=== PATIENT | male | born 1955 | race Caucasian/White ===

== ENCOUNTER 2022-10-27 15:45 | Outpatient (CLI) | payer MEDICARE ==
--- NOTE | 2022-11-04 08:12 | MRI Report ---
PROCEDURE: ABDOMEN W/WO INDICATIONS: RENAL CYST CONTRAST: GADAVIST 10.0 ML TECHNIQUE: Coronal ultra fast SE, axial 2D spoiled GE in- and [id number]; axial breath-hold T2 fast SE. Dynam ic axial ultra fast GE during the administration of contrast; post-contrast coronal ultra fast GE or 2D spoiled GE with fat saturation from the hepatic dome to the iliac crests. Optional diffusion weig hted imaging and ADC may be performed. COMPARISON: None available at time of dictation FINDINGS: Image quality: Excellent. Lung bases and heart: Unremarkable. Liver: No solid mass. Moderate signal dropout on the out of phase sequence, most consistent with mode rate hepatic steatosis. Gallbladder and biliary tree: No radiopaque stones or wall thickening. No biliary dilation. Spleen: No splenomegaly. Pancreas: No pancreatic ductal dilation. Adrenals: No adrenal nodule. Kidneys and ureters: On the mid pole of the left kidney, there is a 2.0 cm cystic lesion with a mildl y thickened wall; wall thickness measures 4 mm. Bowel and peritoneum: No bowel distension. No pathologic free fluid. Lymph nodes: No central or retroperitoneal adenopathy. Vessels: No infrarenal aortic aneurysm. Bones: No aggressive osseous abnormality. Other: No significant ventral hernia. 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 These lesions have an intermediate probability of malignancy. If not artery obtained, consider urology consultation. Moderate hepatic steatosis. Reviewed by: Mo Velázquez on 11/04/2022 8:11 AM PDT Approved by: Mo Velázquez on 11/04/2022 8:11 AM PDT Station ID: [id number]
== END 2022-10-27 15:46 | disposition home or self-care (01) ==
LOC: DI 15:45
PROVIDERS: ATTEND Internal Medicine
DX: N28.9 Disorder of kidney and ureter, unspecified (principal)
CPT/HCPCS: 74183; A9585

== ENCOUNTER 2022-12-05 10:08 | Outpatient (CLI) | payer MEDICARE ==
--- NOTE | 2022-12-05 12:49 | SLEEP CARE CONSULTATION ---
Information from patient questionnaire entered by Rama No. I have reviewed and concur with the information entered by Rama No. This document represents the service I personally performed and the decisions made by me, Anuj Turner MD, [facility]. History of Present Illness Service Date and Time: 12/05/2022 1008 Reason for Visit: New patient Chief Complaint: reports: Insomnia, Unrefreshed sleep, Snoring, Excessive daytime sleepiness, Observed pauses in breathing, Fatigue, Frequent awakenings at night, Other (UPDATE SUPPLIES) Date of Onset: DX WITH CHRISTIAN Usual bedtime: 11PM Time it takes to fall asleep: 20-40MIN Snores at night: Yes Observed to quit breathing while asleep: Yes Sleeps alone due to snoring: No Number of times waking at night: 2 Reasons for waking at night: reports: Snoring, Pain, Bathroom Toss, Turn, or Twitch while sleeping: Yes Recalls having dreams: Yes Feels refreshed in the morning: No Morning headache: No Sleepy or fatigued during the day: Yes Ever fallen asleep while driving: No Takes day naps: No Additional HPI information: I had the pleasure of seeing Mr. Becerril today regarding obstructive sleep apnea- hypopnea. As you know, he is a 67-year-old gentleman who was diagnosed with the sleep-disordered breathing at [facility] in 2008. The sleep study report is not available. The patient tired to get it online but nothing older than 10 years is accessible. He was prescribed a CPAP device set at 8.2 cmH2O. He uses the ResMed AirSense 11 every night and all night. The compliance data show usage in 90 out of the past 90 nights, averaging 8.4 hours a night. The residual AHI is 1.0 and average air leak is 0 L/minute. He wears a [employer] Eson nasal mask. He has not gotten supplies for at least a year. He finds the treatment very beneficial. His machine came from [employer]. in [facility]. He has not gotten any supplies for almost 2 years. - Parasomnia Symptoms Ever been unable to move upon waking from sleep: No Walks in sleep: No Talks in sleep: Yes Ever felt weak in the knees when startled or emotional: No Bothered by creepy, crawly, restless sensations in legs: No Problems with memory or concentration: Yes Subjective Initial [place] Sleepiness Scale score: 6 (12/05/22) Past Medical History Past Medical History: reports: Hypertension, Arthritis, Asthma, Attention deficit Social History The patient's occupation is a RE. Patient is and lives in . Have you smoked in the past 12 months: No Alcohol use: Yes Alcohol amount and frequency: 2 3X WEEK Caffeine use: No Family History Family history of sleep disordered breathing: Yes Family Hx Sleep Apnea: Father: Snoring, Sleep apnea - Untreated, Sibling: Snoring, Sleep apnea - Untreated Allergies and Home Medications Known drug allergies: Yes ( LISTED) Drug allergies reviewed: Yes Home medication list reviewed: Yes Review of Systems Weight gain over past 5 years: 15 Weight loss over past 5 years: 10 Cardiovascular: reports: high blood pressure, chest pain, leg or foot swelling Respiratory: reports: shortness of breath, wheeze, chronic cough Gastrointestinal: reports: heartburn, nausea, diarrhea, abdominal pain Neurological: reports: gait or balance problems Psychiatric: reports: Attention Deficit Hyperactivity Ear/Nose/Throat: reports: nasal congestion, sinus problems, wisdom teeth removed Endocrine: reports: sluggishness Musculoskeletal: reports: joint pain, neck pain, muscle pain or cramping Immunologic: reports: sneezing, itching, allergies to food or environment Physical Exam Vital signs obtained and entered by: RAMA Brown MA Blood Pressure: 132/80 (LEFT ARM) Cuff size: regular Heart Rate: 69 O2 Saturation: 96 Height: 5 ft 10 in Weight: 225 lb Body Mass Index: 32.3 BMI Classification: Obese Neck circumference: 18 Mood/affect: Normal HEENT: No craniofacial malformation Nostrils: patent to airflow Turbinates: normal Septum: midline Mouth and throat: narrow oropharynx Soft palate: long Hard palate: normal Uvula: normal Uvula visualization: 50% Mallampati Class II Tongue: normal in size Tonsils: small Chin and jaw: normal size and position Neck: normal w/o lymphadenopathy or thyromegaly Heart: regular rate and rhythm Lungs: clear bilaterally Extremities: no edema or clubbing Neurologic: intact Impression and Plan I had the pleasure of seeing Mr. Becerril today regarding obstructive sleep apnea-hypopnea. As you know, he is a 67-year-old gentleman who was diagnosed with the sleep-disordered breathing at [facility] in 2008. The sleep study report is not available. The patient tired to get it online but nothing older than 10 years is accessible. He was prescribed a CPAP device set at 8.2 cmH2O. He uses the ResMed AirSense 11 every night and all night. The compliance data show usage in 90 out of the past 90 nights, averaging 8.4 hours a night. The residual AHI is 1.0 and average air leak is 0 L/minute. He wears a [employer] Eson nasal mask. He has not gotten supplies for at least a year. He finds the treatment very beneficial. His machine came from [employer] [employer] in [facility]. He has not gotten any supplies for almost 2 years. Follow up with Sleep Care in: 1 year Plan: Patient is to bring in a copy of his sleep study report and I will prescribe him new supplies. If not, a new PSG will be ordered. Visit Type: In Office Other Participants: Spouse/Significant Other Time Spent with Patient (minutes): 15 Provider Statement: I spent 100% of the Face to Face Visit with the patient with greater than 50% spent counseling the patient and coordination of care.
[2022-12-05 12:55] VITALS: BP 132/80; O2SAT 96
== END 2022-12-05 10:09 | disposition home or self-care (01) ==
LOC: SC 10:08
PROVIDERS: ATTEND Internal Medicine Pulmonary Disease
DX: G47.33 Obstructive sleep apnea (adult) (pediatric) (principal); E66.9 Obesity, unspecified; Z68.32 Body mass index [BMI] 32.0-32.9, adult
CPT/HCPCS: 99202; G0463; 99212

== ENCOUNTER 2023-06-25 11:26 | Outpatient (CLI) | payer MEDICARE ==
--- NOTE | 2023-06-25 20:17 | Ultrasound Report ---
PROCEDURE: Renal (Retroperitoneal) INDICATIONS: RENAL CYST TECHNIQUE: Real-time scanning was performed of the retroperitoneal organs, with image documentation. COMPARISON: MRI of abdomen dated 10/27/2022. FINDINGS: Kidneys: Kidneys are normal in size. Right kidney measures 13.8 cm long; left kidney measures 11.1 cm long. Right renal cortical thickness is 1.0 cm; left renal cortical thickness is 0.6 cm. Simple appearing exophytic cyst is seen in upper pole left kidney measures 2.5 x 1.9 x 2.0 cm in size. No so lid masses, hydronephrosis, or nephrolithiasis. Bladder: Pre-void bladder volume is 194.9 mL. Post-void residual is 45.7 mL. Pre-void images demon strate no intraluminal masses or stones. On pre-void images, bilateral ureteral jets are noted with color Doppler interrogation. (Of note, ureteral jets may not be detectable in up to 25% of cases due to insufficient differences in specific gravity between ureteral and bladder urine). Miscellaneous: No free abdominal fluid. IMPRESSION: 1. Simple appearing exophytic cyst in upper pole left kidney as above. No solid renal lesion. No hydr onephrosis. 2. Normal-appearing urinary bladder. Small to moderate amount of postvoid residual. Reviewed by: Alfonso Ahuja MD on 06/25/2023 8:16 PM PDT Approved by: Alfonso Ahuja MD on 06/25/2023 8:16 PM PDT Station ID: [id number]
== END 2023-06-25 11:27 | disposition home or self-care (01) ==
LOC: DI 11:26
PROVIDERS: ATTEND Urology
DX: N28.1 Cyst of kidney, acquired (principal)